=== PATIENT | female | born 1955 | race Caucasian/White ===

== ENCOUNTER → 2023-10-11 12:51 | Outpatient (REF) | payer BC, SELFPAY | LOC: WDC 12:51 | PROVIDERS: ATTENDING PHYSICIAN Student in an Organized Health Care Education/Training Program | DX: Z12.31 Encounter for screening mammogram for malignant neoplasm of breast (principal) | CPT/HCPCS: 77063; 77067 ==

== ENCOUNTER 2023-11-27 14:14 | Emergency (ER) | payer BC, SELFPAY ==
[2023-11-27 14:17] VITALS: BP 137/100
--- NOTE | 2023-11-27 14:55 | ED.GENMED ---
History of Present Illness
General
Chief Complaint: Ear Problem
Time Seen by Provider: 11/27/23 14:55
Travel History
Have you had any contact with someone who has COVID-19?: No
Do you have any symptoms of coronavirus? Fever > 100 degrees, chills, cough, shortness of breath, sore throat, loss of taste or smell, muscle aches, or headache?: No
History of Present Illness
History of Present Illness:
HPI: About a week ago, the patient started having a sensation of discomfort in the right ear. She denies pain. She talked to pharmacist who recommended naproxen and Sudafed and this did help. However more recently she developed sensation of
feeling 'wacky'�symptoms worsen when she turns her head. She cannot clearly describe dizziness/vertigo. She did have associated right-sided head discomfort and states she normally does not have head pain.
EXAM:
GENERAL: Well appearing in no distress
HEENT: Moist oral mucosa, there is no significant abnormality to either TM or canal other than some cerumen noted in the left canal
CARDIOVASCULAR: No murmurs, normal heart rate, regular rhythm, No chest wall tenderness
PULMONARY: No respiratory distress, breath sounds are clear and equal
ABDOMEN: Soft with no peritoneal signs, no tenderness
NEUROLOGIC: Excellent strength all extremities, no coordination deficits, normal finger-nose testing
PSYCHIATRIC: Appropriate mental status, normal insight and judgement
EXTREMITIES: Nontender, no edema, moves all extremities equally
SKIN: No rash, no lesions
TIME OF INITIAL ENCOUNTER:
NUMBER AND COMPLEXITY OF PROBLEMS ADDRESSED AT THE ENCOUNTER
� Chronic conditions affecting care: High blood pressure
� Acute Exacerbation and/or Progression of Chronic Illness: This is an acute problem
� Differential Diagnosis includes: Positional vertigo, labyrinthitis, intracranial mass
AMOUNT AND/OR COMPLEXITY OF DATA TO BE REVIEWED AND ANALYZED
� I performed an independent evaluation of and my interpretation is:
EKG:
CT: CT imaging shows no acute abnormality of the brain
X-rays:
Laboratory Studies:
Other:
� Review of other/old records: I reviewed discharge summary from 09/15/2023t that time she was on steroids and patient states she tolerated steroids well
� Clinical information was obtained by an independent historian: None needed
� Prescriptions/Medications Considered but not given:
� Further testing considered but not performed:
RISK OF COMPLICATIONS AND/OR MORBIDITY OR MORTALITY OF PATIENT MANAGEMENT
� Social determinants of health affecting care: Lives at home
� Discussion with other providers:
� Escalation of care including admission/observation vs risk of discharge considered: The patient has a normal physical examination and cannot clearly describes her symptoms. However given her age will obtain CT imaging for
further analysis as she did have a headache with some vertiginous type of symptoms. CT imaging negative for any acute abnormality, will try steroids as she wished to try something for her symptoms. She does seem to have some slightly decreased
hearing on the right side�recommended ENT follow-up.
Past History
Past History
ED Past Medical History: None
ED Past Surgical History: Other (breast)
Social History
Tobacco: Smoker
Alcohol: Occasional
Drug: None
Personal: Single
Living: with family
Employment: Employed ([employer])
Phy Exam
Physical Exam
Physical Exam:
See HPI
Course
Orders/Labs/Results
Orders:
Orders
11/27/23 14:59
CT Head W/o Iv Contrast Urgent
Comment:
Reason For Exam: vertigo dizziness
11/27/23 15:45
Prednisone [Deltasone] 50 mg PO NOW STA
Vital Signs
Initial and Last Documented VS:
Initial Vital Signs
Temp Pulse Resp BP Pulse Ox
98.1 F 85 16 137/100 98
11/27/23 14:17 11/27/23 14:17 11/27/23 14:17 11/27/23 14:17 11/27/23 14:17
Last Documented Vital Signs
Temp Pulse Resp BP Pulse Ox
98.1 F 85 16 137/100 98
11/27/23 14:17 11/27/23 14:17 11/27/23 14:17 11/27/23 14:17 11/27/23 14:17
*Critical Care Note
Total Time (30-74mins, 75-104mins- exclusive of procedures): Not Applicable
ED Attending Note
-
Portions of this chart may have been created with voice recognition software.� Occasional wrong word or��sound alike� substitutions may have occurred due to the inherent limitations of voice recognition software.
Discharge Plan
Departure
Patient Disposition: Home (Routine Discharge)
Date of Disposition: 11/27/23
Time of Disposition: 15:42
Patient with high blood pressure during this ER visit?: Yes
Discharge Problem:
Vertigo
Instructions: Vestibular Exercises, Vertigo ED
Prescriptions:
New
prednisone 50 mg tablet
50 mg PO DAILY Qty: 4 0RF
No Action
escitalopram oxalate 10 MG tablet
20 mg PO DAILY
aripiprazole 2 MG tablet
2 mg PO DAILY
atorvastatin 10 mg Tablet
10 mg PO HS
albuterol sulfate 90 mcg/actuation Hfa Aerosol Inhaler
1 inh INHALATION Q4HPRN PRN (Reason: wheeze/sob)
ascorbic acid (vitamin C) [Vitamin C] 500 mg Tablet
500 mg PO DAILY
vitamin B complex Tablet
1 tab PO DAILY
ipratropium-albuterol 0.5 mg-3 mg(2.5 mg base)/3 mL Solution For Nebulization
3 ml inhalation R QID Qty: 90 0RF
thiamine HCl (vitamin B1) 100 mg Tablet
100 mg PO DAILY Qty: 30 0RF
benzonatate 100 mg Capsule
100 mg PO TIDPRN PRN (Reason: cough) Qty: 20 0RF
folic acid 1 mg Tablet
1 mg PO DAILY Qty: 30 0RF
guaifenesin 600 mg Tablet Extended Release 12hr
1,200 mg PO Q12 Qty: 14 0RF
nicotine (polacrilex) 2 mg lozenge
2 mg buccal Q8H PRN (Reason: nicotine cravings) Qty: 72 0RF
(DME) nebulizers Misc
See Rx Instructions .Route Qty: 1 0RF
Rx Instructions:
As directed
prednisone 10 mg tablet
See Taper PO DIRECTED Qty: 30 0RF
Taper: Prednisone DC Starting at 40 mg daily
40 mg Daily for 3 Days and 0 Hour
30 mg Daily for 3 Days and 0 Hour
20 mg Daily for 3 Days and 0 Hour
10 mg Daily for 3 Days and 0 Hour
Referrals:
Lea Cummins MD [Family Provider] -
Richard De La Paz MD [Active] - Follow up in 2-3 days
Activity Restrictions/Additional Instructions:
The cause of your symptoms is unclear. CAT scan of the brain was obtained which was unremarkable. We can try a short course of steroid medication. I have given you the contact information for a local ENT doctor, Dr. Pierre, to follow-up with.
Interventions
Interventions:
*ED COVID-19 Vaccine History Last Done: 11/27/23 14:17
[2023-11-27] MEDS: DELTASONE 50 MG PO (15:50)
== END 2023-11-27 16:14 | disposition home or self-care (01) ==
LOC: EMR 14:14
PROVIDERS: EMERGENCY PHYSICIAN Emergency Medicine; FAMILY PHYSICIAN Student in an Organized Health Care Education/Training Program
DX: R42 Dizziness and giddiness (principal); F17.200 Nicotine dependence, unspecified, uncomplicated
CPT/HCPCS: 99284; 70450

== ENCOUNTER → 2023-12-28 19:17 | Outpatient (REF) | payer BC, SELFPAY | LOC: MRI 3T 19:17 | PROVIDERS: ATTENDING PHYSICIAN Student in an Organized Health Care Education/Training Program | DX: R42 Dizziness and giddiness (principal) | CPT/HCPCS: 70553; A9575 ==

== ENCOUNTER → 2024-01-09 11:57 | Outpatient (REF) | payer BC, SELFPAY ==
[2024-01-09 13:26] LABS: % Basophils 0.9 % (0-2); % Eosinophils 2.8 % (0-6); % Immature Granulocytes 0.3 % (0-0.5); % Lymphocytes 21.5 % (20.5-51.1); % Monocytes 8.7 % (1.7-9.3); % Neutrophils 65.8 % (42.2-75.2); Absolute Basophils 0.1 10^3/uL (0-0.2); Absolute Eosinophils 0.2 10^3/uL (0-0.7); Absolute Lymphocytes 1.4 10^3/uL (1.2-3.4); Absolute Monocytes 0.6 10^3/uL (0.1-0.6); Absolute Neutrophils 4.2 10^3/uL (1.4-6.5); Hematocrit 39.9 % (37.0-47.0); Hemoglobin 13.3 g/dL (12.0-16.0); Mean Corp Hgb Conc. 33.3 g/dL (33.0-37.0); Mean Corpuscular Hgb 32.5 pg (27.0-31.0); Mean Corpuscular Volume 97.6 fL (81.0-99.0); Mean Platelet Volume 9.5 fL (7.4-10.4); Nucleated Red Blood Cells % 0 %; Platelet Count 309 10^3/uL (130-400); Red Blood Cell Count 4.09 10^6/uL (4.20-5.40); Red Cell Dist. Width 12.4 % (11.5-14.5); White Blood Cell Count 6.3 10^3/uL (4.8-10.8)
[2024-01-09 14:27] LABS: ALT (SGPT) 51 U/L (0-35); AST (SGOT) 43 U/L (14-36); Albumin 4.5 g/dl (3.5-5.0); Alkaline Phosphatase 65 U/L (38-126); Blood Urea Nitrogen 19 mg/dl (7-17); Carbon Dioxide 31 mmol/L (22-30); Chloride 101 mmol/L (98-107); Glucose 93 mg/dl (70-99); Potassium 4.9 mmol/L (3.5-5.1); Sodium 137 mmol/L (135-145); Total Bilirubin 0.7 mg/dl (0.2-1.3); Total Protein 7.5 g/dl (6.3-8.2); eGFR > 60.00
[2024-01-09 15:29] LABS: TSH Reflex To Free T4 8.27 uIU/ml (0.47-4.68)
== END ==
LOC: REG 11:57
PROVIDERS: ATTENDING PHYSICIAN Student in an Organized Health Care Education/Training Program
DX: R42 Dizziness and giddiness (principal); R53.83 Other fatigue
CPT/HCPCS: 36415; 80053; 84439; 84443; 85025

== ENCOUNTER → 2024-03-13 08:59 | Outpatient (REF) | payer BC, SELFPAY ==
[2024-03-13 12:05] LABS: ALT (SGPT) 37 U/L (0-35); AST (SGOT) 48 U/L (14-36); Albumin 4.5 g/dl (3.5-5.0); Alkaline Phosphatase 69 U/L (38-126); Blood Urea Nitrogen 22 mg/dl (7-17); Calcium 9.7 mg/dl (8.4-10.2); Carbon Dioxide 27 mmol/L (22-30); Chloride 104 mmol/L (98-107); Glucose 89 mg/dl (70-99); HDL Cholesterol 69 mg/dl; LDL Cholesterol, Calculated 81 mg/dl; Potassium 4.1 mmol/L (3.5-5.1); Sodium 138 mmol/L (135-145); Total Bilirubin 0.9 mg/dl (0.2-1.3); Total Cholesterol 174 mg/dl (50-199); Total Protein 7.2 g/dl (6.3-8.2); Triglyceride 122 mg/dl (10-149); Very Low Density Lipoprotein 24 mg/dl (0-30); eGFR > 60.00
[2024-03-13 12:27] LABS: TSH 0.96 uIU/ml (0.47-4.68)
[2024-03-14 16:20] LABS: TSH Receptor Antibody <1.10 IU/L (<=1.75)
== END ==
LOC: HWRAD 08:59
PROVIDERS: ATTENDING PHYSICIAN Student in an Organized Health Care Education/Training Program
DX: M81.0 Age-related osteoporosis without current pathological fracture (principal); Z00.00 Encounter for general adult medical examination without abnormal findings; E78.5 Hyperlipidemia, unspecified; R79.89 Other specified abnormal findings of blood chemistry; E03.9 Hypothyroidism, unspecified
CPT/HCPCS: 36415; 77080; 80053; 80061; 83520; 84443

== ENCOUNTER → 2024-05-28 14:48 | Outpatient (REF) | payer BC, SELFPAY ==
[2024-05-28 15:47] LABS: ALT (SGPT) 26 U/L (0-35); AST (SGOT) 31 U/L (14-36); Albumin 4.5 g/dl (3.5-5.0); Alkaline Phosphatase 68 U/L (38-126); Blood Urea Nitrogen 23 mg/dl (7-17); Calcium 9.9 mg/dl (8.4-10.2); Carbon Dioxide 29 mmol/L (22-30); Chloride 102 mmol/L (98-107); Glucose 95 mg/dl (70-99); Potassium 4.1 mmol/L (3.5-5.1); Sodium 142 mmol/L (135-145); Total Bilirubin 0.5 mg/dl (0.2-1.3); eGFR > 60.00
== END ==
LOC: REG 14:48
PROVIDERS: ATTENDING PHYSICIAN Student in an Organized Health Care Education/Training Program
DX: R79.89 Other specified abnormal findings of blood chemistry (principal)
CPT/HCPCS: 36415; 80053

== ENCOUNTER → 2024-07-19 08:48 | Outpatient (REF) | payer BC, SELFPAY ==
[2024-07-19 10:05] LABS: ALT (SGPT) 30 U/L (0-35); AST (SGOT) 35 U/L (14-36); Albumin 4.3 g/dl (3.5-5.0); Alkaline Phosphatase 48 U/L (38-126); Blood Urea Nitrogen 35 mg/dl (7-17); Calcium 9.8 mg/dl (8.4-10.2); Carbon Dioxide 30 mmol/L (22-30); Chloride 104 mmol/L (98-107); Glucose 97 mg/dl (70-99); HDL Cholesterol 73 mg/dl; LDL Cholesterol, Calculated 109 mg/dl; Potassium 4.4 mmol/L (3.5-5.1); Sodium 142 mmol/L (135-145); Total Bilirubin 0.5 mg/dl (0.2-1.3); Total Cholesterol 198 mg/dl (50-199); Total Protein 6.9 g/dl (6.3-8.2); Triglyceride 84 mg/dl (10-149); Very Low Density Lipoprotein 16 mg/dl (0-30); eGFR > 60.00
[2024-07-19 10:28] LABS: Vitamin D, 25-OH*** 40.2 ng/mL (30-80)
== END ==
LOC: REG 08:48
PROVIDERS: ATTENDING PHYSICIAN Student in an Organized Health Care Education/Training Program
DX: E78.5 Hyperlipidemia, unspecified (principal); M81.0 Age-related osteoporosis without current pathological fracture
CPT/HCPCS: 36415; 80053; 80061; 82306

== ENCOUNTER → 2024-08-20 14:35 | Outpatient (REF) | payer BC, SELFPAY | LOC: RAD 14:35 | PROVIDERS: ATTENDING PHYSICIAN Internal Medicine | DX: R05.2 Subacute cough (principal) | CPT/HCPCS: 71046 ==

== ENCOUNTER → 2024-10-16 13:21 | Outpatient (REF) | payer BC, SELFPAY | LOC: HWRAD 13:21 | PROVIDERS: ATTENDING PHYSICIAN Internal Medicine Critical Care Medicine; FAMILY PHYSICIAN Student in an Organized Health Care Education/Training Program | DX: F17.210 Nicotine dependence, cigarettes, uncomplicated (principal) | CPT/HCPCS: 71271 ==

== ENCOUNTER → 2024-10-18 13:53 | Outpatient (REF) | payer BC, SELFPAY | LOC: WDC 13:53 | PROVIDERS: ATTENDING PHYSICIAN Student in an Organized Health Care Education/Training Program | DX: Z12.31 Encounter for screening mammogram for malignant neoplasm of breast (principal) | CPT/HCPCS: 77063; 77067 ==

== ENCOUNTER → 2025-01-31 16:42 | Outpatient (REF) | payer BC, SELFPAY ==
[2025-01-31 17:16] LABS: % Basophils 1.2 % (0-2); % Eosinophils 6.2 % (0-6); % Immature Granulocytes 0.2 % (0-0.5); % Lymphocytes 33.2 % (20.5-51.1); % Monocytes 9.3 % (1.7-9.3); % Neutrophils 49.9 % (42.2-75.2); Absolute Basophils 0.1 10^3/uL (0-0.2); Absolute Eosinophils 0.3 10^3/uL (0-0.7); Absolute Lymphocytes 1.4 10^3/uL (1.2-3.4); Absolute Monocytes 0.4 10^3/uL (0.1-0.6); Absolute Neutrophils 2.1 10^3/uL (1.4-6.5); Hematocrit 41.7 % (37.0-47.0); Hemoglobin 13.5 g/dL (12.0-16.0); Mean Corp Hgb Conc. 32.4 g/dL (33.0-37.0); Mean Corpuscular Hgb 32.5 pg (27.0-31.0); Mean Corpuscular Volume 100.2 fL (81.0-99.0); Mean Platelet Volume 9.4 fL (7.4-10.4); Nucleated Red Blood Cells % 0 %; Platelet Count 311 10^3/uL (130-400); Red Blood Cell Count 4.16 10^6/uL (4.20-5.40); Red Cell Dist. Width 12.3 % (11.5-14.5); White Blood Cell Count 4.2 10^3/uL (4.8-10.8)
[2025-01-31 17:21] LABS: ALT (SGPT) 30 U/L (0-35); AST (SGOT) 29 U/L (14-36); Albumin 4.5 g/dl (3.5-5.0); Alkaline Phosphatase 63 U/L (38-126); Blood Urea Nitrogen 23 mg/dl (7-17); Calcium 9.3 mg/dl (8.4-10.2); Carbon Dioxide 27 mmol/L (22-30); Chloride 108 mmol/L (98-107); Glucose 82 mg/dl (70-99); HDL Cholesterol 65 mg/dl; LDL Cholesterol, Calculated 102 mg/dl; Potassium 4.5 mmol/L (3.5-5.1); Sodium 140 mmol/L (135-145); Total Bilirubin 0.9 mg/dl (0.2-1.3); Total Cholesterol 190 mg/dl (50-199); Total Protein 7.1 g/dl (6.3-8.2); Triglyceride 119 mg/dl (10-149); Very Low Density Lipoprotein 23 mg/dl (0-30); eGFR > 60.00
[2025-01-31 17:46] LABS: Vitamin D, 25-OH*** 35.1 ng/mL (30-80)
[2025-01-31 17:59] LABS: TSH 1.57 uIU/ml (0.47-4.68)
== END ==
LOC: CLAB 16:42
PROVIDERS: ATTENDING PHYSICIAN Internal Medicine
DX: Z00.00 Encounter for general adult medical examination without abnormal findings (principal); E78.5 Hyperlipidemia, unspecified; E03.9 Hypothyroidism, unspecified; R79.89 Other specified abnormal findings of blood chemistry
CPT/HCPCS: 36415; 80053; 80061; 82306; 84443; 85025